=== PATIENT | female | born 1970 | race Caucasian/White ===

== ENCOUNTER 2023-02-20 20:51 | Emergency (ER) | payer SELFPAY ==
[~2023-02-20] VITALS: Ht 162.6 cm; Wt 87.0 kg
[2023-02-20 22:42] LABS: BASOPHILS % 0.6 % (0.0-2.0); EOSINOPHILS % 0.3 % (0.0-5.0); HEMATOCRIT. 42.2 % (36.0-48.0); HEMOGLOBIN. 14.8 g/dL (12.0-16.0); LYMPHOCYTES % 15.2 % (20.0-50.0); MEAN CORPUSCULAR HEMOGLOBIN 36.9 pg (28.0-32.0); MEAN CORPUSCULAR VOLUME 105.1 fL (81.0-99.0); MEAN PLATELET VOLUME 10.7 fl (7.4-10.4); MONOCYTES % 6.2 % (2.0-8.0); NEUTROPHILS % 77.7 % (40.0-76.0); PLATELET 105 x1000/uL (130-400); RED BLOOD CELL COUNT 4.01 mill/uL (4.2-5.4); RED CELL DISTRIBUTION WIDTH 14.4 % (11.6-14.6)
[2023-02-20 22:48] LABS: CHLORIDE 110 mEq/L (98-107)
[2023-02-21 02:00] VITALS: BP 155/71
== END 2023-02-21 02:08 | disposition home or self-care (01) ==
LOC: ER 20:51
DX: R06.02 Shortness of breath (principal); I10 Essential (primary) hypertension; Z85.9 Personal history of malignant neoplasm, unspecified
CPT/HCPCS: 36415; 71045; 80053; 83880; 84484; 85025; 93005; 99285; Z7610